=== PATIENT | female | born 1985 | race African-American/Black ===

== ENCOUNTER 2023-01-15 11:12 | Emergency (ER) | payer MEDICARE ==
[~2023-01-15] VITALS: Ht 170.2 cm; Wt 102.1 kg
[2023-01-15] MEDS ORDERED: LACTATED RINGER'S 1,000 ML INJ ONE (11:30)
[2023-01-15 11:57] LABS: BASOPHILS # (AUTO) 0.1 (0.0-0.1); BASOPHILS % 0.5 % (0.0-1.0); EOSINOPHILS % 0.4 % (0.0-6.0); HEMATOCRIT 36.7 % (34.2-44.1); HEMOGLOBIN 11.8 g/dL (12.0-16.0); LYMPHOCYTES # (AUTO) 2.4 (1.0-3.2); MEAN CORPUSCULAR HEMOGLOBIN 23.8 pg (28-32); MEAN CORPUSCULAR HGB CONC 32.2 g/dL (31-35); MONOCYTES # (AUTO) 0.4 (0.2-0.8); MONOCYTES % 4.5 % (4.4-11.3); NEUTROPHILS # (AUTO) 6.7 (2.1-6.9); NEUTROPHILS % 69.4 % (38.7-80.0); PLATELET COUNT 221 x10e3/uL (140-360); RED BLOOD COUNT 4.96 x10e6/uL (3.6-5.1)
[2023-01-15] MEDS ORDERED: Morphine 4mg INJECTION 4 MG/ML INJ IV ONE (12:00)
[2023-01-15 12:17] LABS: ANION GAP 17.1 mmol/L (8-16); CALCIUM 8.2 mg/dL (8.4-10.2); CREATININE, SERUM 0.76 mg/dL (0.57-1.11); POTASSIUM 3.1 mmol/L (3.5-5.1)
[2023-01-15 13:08] LABS: ANISOCYTOSIS SLIGHT; PLATELET ESTIMATE ADEQUATE; PLATELET MORPHOLOGY COMMENT NORMAL
[2023-01-15] MEDS ORDERED: HYDROCODONE/APAP 10MG-325MG TAB PO ONE (13:30)
[2023-01-15 13:32] VITALS: BP 140/99
== END 2023-01-15 14:09 | disposition home or self-care (01) ==
LOC: ER 11:22
DX: D57.00 Hb-SS disease with crisis, unspecified (principal); M79.605 Pain in left leg; M79.604 Pain in right leg; M54.9 Dorsalgia, unspecified; Z98.84 Bariatric surgery status
CPT/HCPCS: 36415; 80048; 84702; 85025; 85045; 99284; J2270; J7121